=== PATIENT | male | born 1970 | race Two or more races ===

== ENCOUNTER 2018-11-02 22:10 | Emergency (ER) | payer OTHER ==
[~2018-11-02] VITALS: Ht 175.3 cm; Wt 59.1 kg
[2018-11-02 22:11] VITALS: BP 111/80
[2018-11-02] MEDS ORDERED: methylPREDNISolone INJ 125 MG/2 ML VIAL (J2930) IV ONE (22:30)
[2018-11-02] MEDS ORDERED: diphenhydrAMINE INJ 50MG/ML VIAL (J1200) IV ONE (22:30)
[2018-11-02] MEDS ORDERED: FAMOTIDINE IV BAG 20 MG in APPROPRIATE DILUENT 1 EA IV ONE (22:30)
[2018-11-02] MEDS ORDERED: PRED20TA PO (23:19)
[2018-11-02] MEDS ORDERED: PEPC1TAB5 PO (23:19)
[2018-11-02] MEDS ORDERED: BENA25CA4 PO (23:19)
== END 2018-11-02 23:30 | disposition home or self-care (01) ==
LOC: M ED 22:10
DX: R21 Rash and other nonspecific skin eruption (principal); T78.49XA Other allergy, initial encounter; X58.XXXA Exposure to other specified factors, initial encounter; Y92.89 Other specified places as the place of occurrence of the external cause; Z79.899 Other long term (current) drug therapy; Z87.891 Personal history of nicotine dependence
CPT/HCPCS: 96365; 96375; 99284; J1200; J2930